=== PATIENT | female | born 1955 | race Caucasian/White ===

== ENCOUNTER → 2016-11-18 | Outpatient (CLI) | payer OTHER | END | disposition home or self-care (01) | LOC: CFH 07:34 | PROVIDERS: ATTEND Internal Medicine Hematology & Oncology | DX: C50.912 Malignant neoplasm of unspecified site of left female breast (principal); K70.0 Alcoholic fatty liver | CPT/HCPCS: 76700 ==

== ENCOUNTER 2017-04-21 09:11 | Day surgery (SDC) | payer OTHER ==
[~2017-04-21] VITALS: Ht 162.6 cm; Wt 67.8 kg
[2017-04-21] MEDS ORDERED: LACTATED RINGERS 1,000 ML IV SCH (09:39)
[2017-04-21] MEDS ORDERED: BUPIVACAINE/PF 0.5% ONE (09:44)
[2017-04-21 10:03] VITALS: BP 148/86
[2017-04-21] MEDS ORDERED: NONE PER PT (10:09)
[2017-04-21] MEDS ORDERED: BETAMETHASONE 6 MG/ML, 5ML IM ONE ×2 (10:11→11:07)
[2017-04-21] MEDS ORDERED: MIDAZOLAM 1 MG/ML, 2ML ONE (10:27)
[2017-04-21] MEDS ORDERED: FENTANYL PF 100 MCG/2ML ONE (10:27)
[2017-04-21] MEDS ORDERED: PROPOFOL 50 ML ONE ×4 (10:35→12:10)
[2017-04-21] MEDS ORDERED: EPINEPHRINE 1 MG/ML, 1ML ONE (11:01)
[2017-04-21] MEDS ORDERED: EPINEPHRINE 1 MG/ML, 1ML INFIL ONE (11:06)
[2017-04-21] MEDS ORDERED: BUPIVACAINE/PF 0.5% INFIL ONE (11:06)
[2017-04-21] MEDS ORDERED: ALBUTEROL SULFATE 2.5 MG/3 ML NPPB PRN (12:00)
[2017-04-21] MEDS ORDERED: FENTANYL PF 100 MCG/2ML IV PRN (12:00)
[2017-04-21] MEDS ORDERED: HYDROcodone/APAP 7.5-325MG/15ML UDC PO PRN (12:00)
[2017-04-21] MEDS ORDERED: PROMETHAZINE 25 MG/ML, 1ML IV PRN (12:00)
[2017-04-21] MEDS ORDERED: LABETALOL 5MG/ML, 20ML IV PRN (12:00)
[2017-04-21] MEDS ORDERED: HYDROmorphone 1 MG/ML, 1ML IV PRN (12:00)
[2017-04-21] MEDS ORDERED: DIAZEPAM 5 MG/ML, 2ML IVPush PRN (12:00)
[2017-04-21] MEDS ORDERED: METOPROLOL 1 MG/ML, 5ML IV PRN (12:00)
[2017-04-21] MEDS ORDERED: MIDAZOLAM 1 MG/ML, 2ML IV PRN (12:00)
[2017-04-21] MEDS ORDERED: ACETAMINOPHEN 325 MG TABLET PO PRN (12:00)
[2017-04-21] MEDS ORDERED: MEPERIDINE/PF 25MG/0.5ML IVPush PRN (12:00)
[2017-04-21] MEDS ORDERED: hydrALAzine 20 MG/ML, 1ML IV PRN (12:00)
[2017-04-21] MEDS ORDERED: ONDANSETRON 2MG/ML, 2ML IVPush PRN (12:00)
[2017-04-21] MEDS ORDERED: OXYcodone 5 MG/5 ML ORAL.SOL UDC PO PRN (12:00)
[2017-04-21] MEDS ORDERED: EPHEDRINE 50 MG/ML, 1ML IVPush PRN (12:00)
[2017-04-21] MEDS ORDERED: CEFAZOLIN 1,000 MG ONE (12:27)
[2017-04-21] MEDS ORDERED: ONDANSETRON 2MG/ML, 2ML ONE (12:27)
[2017-04-21] MEDS ORDERED: PROPOFOL 10 MG/ML, 20ML ONE (12:27)
[2017-04-21] MEDS ORDERED: DEXAMETHASONE 4 MG/ML, 1ML ONE (12:27)
[2017-04-21] MEDS ORDERED: ACETAMINOPHEN 650 MG/20.3 ML UDC ONE (13:55)
[2017-04-21] MEDS ORDERED: OXYcodone 5 MG/5 ML ORAL.SOL UDC ONE (13:56)
== END 2017-04-21 15:40 ==
LOC: OUT 09:11
PROVIDERS: ATTEND Podiatrist Foot & Ankle Surgery
DX: M20.12 Hallux valgus (acquired), left foot (principal); M21.622 Bunionette of left foot
CPT/HCPCS: 28296; 28308; 93005; J0171; J0690; J0702; J1100; J2250; J2405; J2704; J3010; J3490; J7120

== ENCOUNTER → 2017-06-01 | Outpatient (CLI) | payer OTHER ==
[~2017-06-01] MED LIST: BUPIVACAINE/PF 0.5% ONE; MULTIVITAMIN PO; NONE PER PT
== END | disposition home or self-care (01) ==
LOC: STAR 07:00 → EDSTATUS 10:30
PROVIDERS: ATTEND Surgery
DX: Z02.9 Encounter for administrative examinations, unspecified (principal)
CPT/HCPCS: J3490

== ENCOUNTER 2017-06-14 15:43 | Day surgery (SDC) | payer OTHER ==
[~2017-06-14] VITALS: Ht 162.6 cm; Wt 69.4 kg
[~2017-06-14 15:43] MED LIST changes: -BUPIVACAINE/PF 0.5% ONE; -MULTIVITAMIN PO
[2017-06-14 16:13] VITALS: BP 148/92
[2017-06-14] MEDS ORDERED: LIDOCAINE 1%, 2ML ONE (16:13)
[2017-06-14] MEDS ORDERED: LACTATED RINGERS 1,000 ML IV SCH (16:15)
[2017-06-14] MEDS ORDERED: MULTIVITAMIN PO (16:25)
[2017-06-14] MEDS ORDERED: BUPIVACAINE/PF 0.25% ONE (17:02)
[2017-06-14] MEDS ORDERED: LIDOCAINE/PF 1%, 30ML ONE (17:02)
[2017-06-14] MEDS ORDERED: FENTANYL PF 100 MCG/2ML ONE (17:05)
[2017-06-14] MEDS ORDERED: MIDAZOLAM 1 MG/ML, 2ML ONE (17:05)
[2017-06-14] MEDS ORDERED: EPINEPHRINE 1 MG/ML, 1ML ONE (17:10)
[2017-06-14] MEDS ORDERED: KETOROLAC 30 MG/1 ML ONE (17:12)
[2017-06-14] MEDS ORDERED: ONDANSETRON 2MG/ML, 2ML ONE (17:48)
[2017-06-14] MEDS ORDERED: PROPOFOL 10 MG/ML, 20ML ONE (17:48)
[2017-06-14] MEDS ORDERED: CEFAZOLIN 1,000 MG ONE (17:48)
[2017-06-14] MEDS ORDERED: OXYcodone 5 MG/5 ML ORAL.SOL UDC PO PRN (18:00)
[2017-06-14] MEDS ORDERED: HYDROmorphone 1 MG/ML, 1ML IV PRN (18:00)
[2017-06-14] MEDS ORDERED: hydrALAzine 20 MG/ML, 1ML IV PRN (18:00)
[2017-06-14] MEDS ORDERED: ACETAMINOPHEN 325 MG TABLET PO PRN (18:00)
[2017-06-14] MEDS ORDERED: MIDAZOLAM 1 MG/ML, 2ML IV PRN (18:00)
[2017-06-14] MEDS ORDERED: PROMETHAZINE 25 MG/ML, 1ML IV PRN (18:00)
[2017-06-14] MEDS ORDERED: HYDROcodone/APAP 7.5-325MG/15ML UDC PO PRN (18:00)
[2017-06-14] MEDS ORDERED: METOPROLOL 1 MG/ML, 5ML IV PRN (18:00)
[2017-06-14] MEDS ORDERED: ALBUTEROL SULFATE 2.5 MG/3 ML NPPB PRN (18:00)
[2017-06-14] MEDS ORDERED: MEPERIDINE/PF 25MG/0.5ML IVPush PRN (18:00)
[2017-06-14] MEDS ORDERED: FENTANYL PF 100 MCG/2ML IV PRN (18:00)
[2017-06-14] MEDS ORDERED: LABETALOL 5MG/ML, 20ML IV PRN (18:00)
[2017-06-14] MEDS ORDERED: EPHEDRINE 50 MG/ML, 1ML IVPush PRN (18:00)
[2017-06-14] MEDS ORDERED: DIAZEPAM 5 MG/ML, 2ML IVPush PRN (18:00)
[2017-06-14] MEDS ORDERED: ONDANSETRON 2MG/ML, 2ML IVPush PRN (18:00)
== END 2017-06-14 19:00 | disposition home or self-care (01) ==
LOC: OR 15:43
PROVIDERS: ATTEND Podiatrist Foot & Ankle Surgery
DX: T84.84XA Pain due to internal orthopedic prosthetic devices, implants and grafts, initial encounter (principal); Y83.8 Other surgical procedures as the cause of abnormal reaction of the patient, or of later complication, without mention of misadventure at the time of the procedure; Y92.89 Other specified places as the place of occurrence of the external cause; Z85.3 Personal history of malignant neoplasm of breast
CPT/HCPCS: 20680; J0171; J0690; J1885; J2250; J2405; J2704; J3010; J3490; J7120

== ENCOUNTER 2017-08-31 06:00 | Day surgery (SDC) | payer OTHER ==
[~2017-08-31] VITALS: Ht 162.6 cm; Wt 67.8 kg
[~2017-08-31 06:00] MED LIST changes: +MULTIVITAMIN PO
[2017-08-31 06:47] VITALS: BP 137/82
[2017-08-31] MEDS ORDERED: LACTATED RINGERS 1,000 ML IV SCH (06:56)
[2017-08-31 07:04] LABS: BASOPHILS # (AUTO) 0.06 x10^3/uL (0-0.1); BASOPHILS % (AUTO) 1 % (0-1); EOSINOPHILS # (AUTO) 0.44 x10^3/uL (0-0.4); EOSINOPHILS % (AUTO) 6 % (1-7); LYMPHOCYTES # (AUTO) 2.01 x10^3/uL (1-3.4); LYMPHOCYTES % (AUTO) 25 % (22-44); MD NO; MEAN CORPUSCULAR HEMOGLOBIN 31.2 pg (27.0-34.8); MEAN CORPUSCULAR HGB CONC 34.4 g/dL (32.4-35.8); MEAN CORPUSCULAR VOLUME 90.8 fL (80-100); MEAN PLATELET VOLUME 7.3 fL (7.4-10.4); MONOCYTES # (AUTO) 0.32 x10^3/uL (0.2-0.8); MONOCYTES % (AUTO) 4 % (2-9); NEUTROPHILS # (AUTO) 5.29 x10^3/uL (1.8-6.8); NEUTROPHILS % (AUTO) 65 % (42-75); PLATELET COUNT 229 x10^3/uL (130-400); RED BLOOD COUNT 4.69 x10^6/uL (3.82-5.3); RED CELL DISTRIBUTION WIDTH 12.9 % (9.6-15.2)
[2017-08-31] MEDS ORDERED: FENTANYL PF 100 MCG/2ML ONE (07:09)
[2017-08-31] MEDS ORDERED: MIDAZOLAM 1 MG/ML, 2ML ONE (07:09)
[2017-08-31] MEDS ORDERED: LIDOCAINE-MPF 2% ,5ML ONE (07:12)
[2017-08-31] MEDS ORDERED: BUPIVACAINE/PF 0.5% ONE (07:17)
[2017-08-31] MEDS ORDERED: EPINEPHRINE 1 MG/ML, 1ML ONE (07:17)
[2017-08-31 07:21] LABS: ALBUMIN 3.5 g/dL (3.4-5.0); ANION GAP 8 mmol/L (5-15); CALCIUM 8.1 mg/dL (8.5-10.1); CHLORIDE 112 mmol/L (98-107); CREATININE 0.94 mg/dL (0.55-1.02)
[2017-08-31 07:24] LABS: ALANINE AMINOTRANSFERASE 22 U/L (12-78); ALKALINE PHOSPHATASE 132 U/L (45-117); BILIRUBIN,TOTAL 0.4 mg/dL (0.2-1.0); TOTAL PROTEIN 6.8 g/dL (6.4-8.2)
[2017-08-31] MEDS ORDERED: LIDOCAINE GEL 2%, 5ML ONE ×10 (07:31→07:40)
[2017-08-31] MEDS ORDERED: BUPIVACAINE/PF-EPI 0.5% 1:200K IM ONE (07:39)
[2017-08-31] MEDS ORDERED: DEXAMETHASONE 4 MG/ML, 1ML ONE (07:40)
[2017-08-31] MEDS ORDERED: ONDANSETRON 2MG/ML, 2ML ONE (07:40)
[2017-08-31] MEDS ORDERED: CEFAZOLIN 1,000 MG ONE (07:40)
[2017-08-31] MEDS ORDERED: PROPOFOL 10 MG/ML, 20ML ONE (07:40)
[2017-08-31] MEDS ORDERED: EPHEDRINE 50 MG/ML, 1ML ONE (07:51)
[2017-08-31] MEDS ORDERED: MEPERIDINE/PF 25MG/0.5ML IVPush PRN (08:00)
[2017-08-31] MEDS ORDERED: OXYcodone 5 MG/5 ML ORAL.SOL UDC PO PRN (08:00)
[2017-08-31] MEDS ORDERED: METOCLOPRAMIDE 5 MG/ML, 2ML IV PRN (08:00)
[2017-08-31] MEDS ORDERED: ACETAMINOPHEN 325 MG TABLET PO PRN (08:00)
[2017-08-31] MEDS ORDERED: LABETALOL 5MG/ML, 20ML IV PRN (08:00)
[2017-08-31] MEDS ORDERED: MIDAZOLAM 1 MG/ML, 2ML IV PRN (08:00)
[2017-08-31] MEDS ORDERED: PROMETHAZINE 25 MG/ML, 1ML IV PRN (08:00)
[2017-08-31] MEDS ORDERED: HYDROmorphone 1 MG/ML, 1ML IV PRN (08:00)
[2017-08-31] MEDS ORDERED: FENTANYL PF 100 MCG/2ML IV PRN (08:00)
[2017-08-31] MEDS ORDERED: hydrALAzine 20 MG/ML, 1ML IV PRN (08:00)
[2017-08-31] MEDS ORDERED: ONDANSETRON 2MG/ML, 2ML IVPush PRN (08:00)
[2017-08-31] MEDS ORDERED: DIAZEPAM 5 MG/ML, 2ML IVPush PRN (08:00)
[2017-08-31] MEDS ORDERED: PROMETHAZINE 12.5 MG SUPP PR PRN (08:00)
[2017-08-31] MEDS ORDERED: ALBUTEROL/IPRATROPIUM 2.5MG/0.5MG, 3 ML NPPB PRN (08:00)
[2017-08-31] MEDS ORDERED: KETOROLAC 30 MG/1 ML ONE (08:12)
[2017-08-31] MEDS ORDERED: KETOROLAC 30 MG/1 ML IV PRN (08:30)
== END 2017-08-31 09:25 ==
LOC: OUT 06:00
PROVIDERS: ATTEND Surgery
DX: D17.21 Benign lipomatous neoplasm of skin and subcutaneous tissue of right arm (principal); G43.909 Migraine, unspecified, not intractable, without status migrainosus; Z85.3 Personal history of malignant neoplasm of breast; Z98.890 Other specified postprocedural states; Z72.89 Other problems related to lifestyle
CPT/HCPCS: 25071; 36415; 80053; 85025; 88304; 93005; J0171; J0690; J1100; J1885; J2250; J2405; J2704; J3010; J3490; J7120